=== PATIENT | female | born 1965 | race Two or more races ===

== ENCOUNTER → 2017-05-13 | Outpatient (CLI) | payer BC ==
--- NOTE | ~2017-05-13 | MY29 ---
[facility] A Service of [facility] RADIOLOGY TEXT RESULTS PATIENT: VELASQUEZ GONSALVES LOCATION: [facility] : 61 UNIT #: [id number] AGE: [address]: TRUDY PALM MD SEX: F ORDER DR: [id number] [facility]. [place], [place] [address] [id number] O MR#: [id number] #: [id number] NAME: VELASQUEZ GONSALVES : 1965 SEX: F STUDY DATE/TIME: 05/13/2017 11:06 UNIT: [facility] ROOM: STUDY DESCRIPTION: MY JIGAR SCREENING W/ CAD BILAT Attending Physician: Trudy Palm Referring Physician: Trudy Palm Ordering Physician: Eleanor Palm M.D. Primary Care Physician: Trudy Palm MEDICAL IMAGING REPORT This report is preliminary unless electronic signature is present EXAM Digital screening mammogram 05/13/2017, [facility] HISTORY 51-year-old woman, positive family history, mother postmenopausal. New baseline mammogram. COMPARISON None. Previous mammogram of last year, ? location. FINDINGS Digital imaging of each breast was completed utilizing screening protocol. Review includes FDA-approved CAD device. Dense breast parenchyma is noted centrally in each breast. There are no suspicious mass characteristics. I see no microcalcifications and no suspicious architectural deformity. IMPRESSION Negative mammogram. Annual screening recommended. Patient's over the age of 40 are entered into a reminder system with target due date for the next mammogram. A result letter will be sent to the patient. BIRADS: 1 Negative Dictated by... Rubén Tavarez M.D. THIS IS AN ELECTRONICALLY VERIFIED REPORT Rubén Tavarez M.D. at 05/14/2017 8:05 AM JBB/to [facility] A Service of [facility] RADIOLOGY TEXT RESULTS PATIENT: VELASQUEZ GONSALVES LOCATION: [facility] : 61 UNIT #: [id number] AGE: [address]: TRUDY PALM MD SEX: F ORDER DR: TD: 05/13/2017 19:49 JOB #: [id number] MEDICAL IMAGING REPORT Page 1 of 1 COPY
== END | disposition home or self-care (01) ==
LOC: CWCC 10:30
DX: Z12.31 Encounter for screening mammogram for malignant neoplasm of breast (principal); Z80.3 Family history of malignant neoplasm of breast
CPT/HCPCS: G0202